=== PATIENT | female | born 2000 | race Caucasian/White ===

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

== ENCOUNTER 2022-09-26 07:51 | Emergency (ER) | payer BC ==
[~2022-09-26] VITALS: Ht 167.6 cm; Wt 63.5 kg
[~2022-09-26 07:51] MED LIST changes: +CEPHALEXIN500 M1 PO; +ONDANSETRON4 MG PO; +PHENERGAN25 MG RE
[2022-09-26 08:20] VITALS: BP 126/83
[2022-09-26 08:32] VITALS: BP 132/93
[2022-09-26 09:03] LABS: HEMATOCRIT 39.3 % (37.0-47.0); HEMOGLOBIN 13.5 g/dl (12.0-16.0); MEAN CORPUSCULAR HGB 31.6 pG CALC (26.0-32.0); MEAN CORPUSCULAR HGB CONC 34.4 g/dL CAL (32.0-36.0); NEUT# 6.06 thou/uL (2.00-7.15); RED BLOOD COUNT 4.27 mill/uL (4.20-5.60); RED CELL DISTRI WIDTH 11.7 % (11.5-15.5)
[2022-09-26 09:07] VITALS: BP 124/80
[2022-09-26 09:18] LABS: ALBUMIN 4.7 g/dL (3.2-5.0); ALKALINE PHOSPHATASE 73 u/l (38-126); ANION GAP 14 (6-22 (CALC)); BILIRUBIN, TOTAL 0.4 mg/dL (0.0-1.4); BUN 10 mg/dL (7-17); BUN/CREATININE RATIO 17 (12-20 (CALC)); CARBON DIOXIDE 23 mmol/l (22-30); CHLORIDE 107 mmol/l (95-108); CREATININE 0.6 mg/dL (0.5-1.0); GFR FOR AFR.AMER. > 60 ML/MIN (>=60 (CALC)); GFR OTHER RACES > 60 ML/MIN (>=60 (CALC)); LIPASE 42 u/l (23-300); POTASSIUM 3.8 mmol/l (3.5-5.1); SGOT/AST 28 u/l (14-36); SODIUM 140 mmol/l (137-146); TOTAL PROTEIN 7.6 g/dL (6.3-8.2)
[2022-09-26 13:02] LABS: URINE BILIRUBIN - DIPSTICK NEGATIVE (NEGATIVE); URINE BLOOD DIPSTICK NEGATIVE (NEGATIVE); URINE COLOR YELLOW; URINE GLUCOSE - DIPSTICK NEGATIVE (NEGATIVE); URINE KETONE >=80 mg/dL (NEGATIVE); URINE PROTEIN - DIPSTICK TRACE mg/dL (NEG-TRACE); URINE UROBILINOGEN - DIPSTICK 0.2 E.U./dL (0.2)
[2022-09-26 13:03] LABS: URINE LEUK ESTERASE MODERATE (NEGATIVE); URINE NITRITE - DIPSTICK NEGATIVE (Negative)
[2022-09-26 13:06] LABS: URINE BACTERIA MANY hpf; URINE SQUAMOUS EPITHELIAL CELL FEW EPI/hpf (0-FEW)
[2022-09-26 13:07] LABS: URINE AMORPH SEDIMENT MANY hpf (NONE-FEW)
[2022-09-26] MEDS ORDERED: OMEPRAZOLE DR40 MG PO (13:31)
[2022-09-26] MEDS ORDERED: ZOFRAN4 MG/TAB PO (13:31)
[2022-09-26 13:39] VITALS: BP 124/80
[2022-09-27] MEDS ORDERED: TRI-SPRINTEC PO (13:48)
[2022-09-27] MEDS ORDERED: CARAFATE1 GM/10 ML PO (13:50)
== END 2022-09-26 13:45 | disposition home or self-care (01) | DRG 392 ==
LOC: ED 07:51
PROVIDERS: Family Medicine
DX: R10.9 Unspecified abdominal pain (principal); K21.9 Gastro-esophageal reflux disease without esophagitis; Z20.822 Contact with and (suspected) exposure to COVID-19
CPT/HCPCS: S0164

== ENCOUNTER 2022-11-15 08:36 | Day surgery (SDC) | payer BC ==
[~2022-11-15] VITALS: Ht 167.6 cm; Wt 63.5 kg
[~2022-11-15 08:36] MED LIST changes: +CARAFATE1 GM/10 ML PO; +OMEPRAZOLE DR40 MG PO; +TRI-SPRINTEC PO; +ZOFRAN4 MG/TAB PO
[2022-11-15 11:29] VITALS: BP 114/75
== END 2022-11-15 11:20 | disposition home or self-care (01) | DRG 392 ==
LOC: ENDO 08:36 → ORM 09:30 → ENDO 11:20
PROVIDERS: ATTEND Surgery
PROC: 0DB48ZX Excision of Esophagogastric Junction, Via Natural or Artificial Opening Endoscopic, Diagnostic (ICD-10-PCS; principal; 2022-11-15)
PROC: 0DB78ZX Excision of Stomach, Pylorus, Via Natural or Artificial Opening Endoscopic, Diagnostic (ICD-10-PCS; 2022-11-15)
PROC: 0DB18ZX Excision of Upper Esophagus, Via Natural or Artificial Opening Endoscopic, Diagnostic (ICD-10-PCS; 2022-11-15)
DX: K21.00 Gastro-esophageal reflux disease with esophagitis, without bleeding (principal); K29.70 Gastritis, unspecified, without bleeding; K44.9 Diaphragmatic hernia without obstruction or gangrene; F17.290 Nicotine dependence, other tobacco product, uncomplicated; Z79.899 Other long term (current) drug therapy